=== PATIENT | male | born 1970 | race Caucasian/White ===

== ENCOUNTER 2016-07-30 06:22 | Emergency (ER) | payer OTHER ==
[~2016-07-30] VITALS: Ht 175.3 cm; Wt 84.1 kg
--- NOTE | 2016-07-30 06:25 | ED.REPORT ---
HPI-Allergic Reaction Date of Service Jul 30, 2016 ED Provider: Efren Severino DO A 45 year old male presents to the ED complaining of throat pain and SOB onset around midnight shortly after eating an orange. He was woken up from sleep with difficulty breathing. Patient reports similar reaction after eating various fruits in the past, but the specific allergen has never been identified. Relaxing and breathing through his nose improves symptoms. He denies any recent sickness, fever, rash, abdominal pain, vomiting, or diarrhea. Per , the patient looks more red than usual. He has no known drug allergies, no pertinent surgical history. He is a smoker. Nursing Notes Stated Complaint: ALLERGIC REACTION Nursing Notes Reviewed: Yes Allergies: Coded Allergies: No Known Allergies (Verified Allergy, Unknown, 07/30/16) Scheduled Loratadine (Claritin) 10 Mg Capsule 10 MG PO DAILY Prednisone (PredniSONE) 20 Mg Tablet 40 MG PO DAILY Scheduled PRN diphenhydrAMINE HCl (Benadryl) 25 Mg Capsule 25-50 MG PO QID PRN PRN For Itching General Time Seen by MD: 06:25 Chief Complaint Difficulty breathing, Rash Hx Obtained From: Patient Arrived By: Walk-in Onset Occurred: 5 - 8 hours ago Symptom Duration: Since onset Progression Since Onset: Unchanged Associated with: Reports: Rash/redness all over, Denies: Nausea, Tongue swollen, Vomiting Recent Healthcare: No recent doctor visit Similar Sx Previous: Yes Past Medical History Past Surgical History denies pertinent surgical history. Smoking History Current Every Day Smoker Social History Alcohol Use: Denies alcohol use Drug Use: Denies drug use Other Social History: Good social support Occupation homeless at present. [facility] Ambulatory Status Independent Review of Systems Constitutional: Denies: Fever Ears / Nose / Throat: Reports: Throat pain, Denies: Tongue pain, Tongue swelling Respiratory: Reports: Shortness of breath GI: Denies: Abdominal pain, Diarrhea, Nausea, Vomiting Skin: Denies Rash Complete sys rev & neg: except as marked. Physical Exam Initial Vital Signs Vital Signs (First) Date Time Temp Pulse Resp B/P Pulse Ox O2 Delivery O2 Flow Rate FiO2 07/30/16 06:29 36.1 85 18 139/92 98 Room Air Initial VS: Reviewed Head / Eyes: Atraumatic, Normocephalic Neck: Supple, Non-tender, Full range of motion Abdomen / GI: Soft, Non-tender, No guarding, No rebound, No distention Extremities: Vascular intact, Neuro intact, No swelling, No tenderness Neurologic: Alert, Oriented, Nonfocal General/Constitutional: Awake, Alert, Well developed, Well nourished Respiratory / Chest: No wheezing, No stridor Skin: Warm, Dry, Intact Color / Condition: Positive: Erythema generalized Rash / Lesion Location: Positive: Generalized Rash / Lesion Pattern: Negative: Urticarial ENT: Airway patent Pharynx / Tonsils / Uvula: Positive: Uvula edematous Re-Eval/Medical Decision Med Decision/Clinical Course Monitored for several hours, no progression of uvular edema, known food trigger of oranges. Treated in the ER with IV antihistamines, steroids, epinephrine. We will plan to discharge her strict return and follow-up precautions. Source of Hx: Old records Re-Evaluation/Progress #1: Time of Eval: 07:15 Patient Status: Condition improved (uvula mildly improved.) Re-Evaluation/Progress Note: Rechecked patient and rexamined throat and skin. Re-Evaluation/Progress #2: Time of Eval: 08:03 Re-Evaluation/Progress Note: Rechecked patient. He is resting comftorably and is asleep. His says he is continuing to get better. Re-Evaluation/Progress #3: Time of Eval: 09:08 Re-Evaluation/Progress Note: Uvula is improved, not fully resolved. Counseled Regarding: Diagnosis, Lab results, Need for follow-up, When/why to return to ED Discharge & Departure Primary Impression: Allergic reaction Disposition: Home Discharge Condition All VS Reviewed: Yes Condition: Stable Patient Instructions: Food Allergy (ED) Additional Instructions: Based on your history it seems that you may have a localized allergic reaction. Use Loratadine, Benadryl, prednisone for your symptoms. Continue to monitor your throughout and watch for other signs of allergic reaction such as hives trouble breathing, throat closing or other symptoms. Avoid eating fruits and vegetables which you know may cause allergic reaction. Return to the ER if you notice worsening signs or symptoms of allergic reaction , or other symptoms such as high fever, severe pain or any other concerns. Referrals: Alcides Monet MD (PCP) Scribe Attestation Portions of this note were transcribed by Lorenzo Lincoln and Allan Cisneros. I, Dr. Severino personally performed the history, physical exam and medical decision-making; I reviewed and confirmed the accuracy of the information in the transcribed note. Signed by: Navid Thakkar, 07/30/2016 and 0931. Signed by: Navid Pérez, 07/30/2016 and 09:47. copies to: Alcides Monet MD,Efren Juwan ZHANG Jul 30, 2016 06:25 Lorenzo Lincoln Jul 30, 2016 06:30 ALLAN LION Jul 30, 2016 07:58
[2016-07-30 06:29] VITALS: BP 139/92; PULSE 85; RESP 18; O2SAT 98
[2016-07-30] MEDS ORDERED: Famotidine 10 mg/mL 2 mL Inj IVPUSH ONE (06:30)
[2016-07-30] MEDS ORDERED: MethylprednisoLONE Sodium Succinate 62.5 mg/mL 2 mL Inj IVPUSH ONE (06:30)
[2016-07-30] MEDS ORDERED: LORA10CA PO (09:26)
[2016-07-30] MEDS ORDERED: PRE20 PO (09:26)
[2016-07-30] MEDS ORDERED: DIPH25CA6 PO (09:26)
[2016-07-30 10:19] VITALS: BP 125/86; PULSE 85; RESP 14; O2SAT 99
== END 2016-07-30 09:26 | disposition home or self-care (01) ==
LOC: SED 06:22
DX: T78.1XXA Other adverse food reactions, not elsewhere classified, initial encounter (principal); L27.2 Dermatitis due to ingested food; X58.XXXA Exposure to other specified factors, initial encounter; Y93.89 Activity, other specified; Y92.9 Unspecified place or not applicable; Y99.9 Unspecified external cause status; F17.200 Nicotine dependence, unspecified, uncomplicated
CPT/HCPCS: 96372; 96374; 96375; 99284; J0171; J1200; J2930